=== PATIENT | male | born 1955 | race Caucasian/White ===

== ENCOUNTER → 2016-07-02 | Outpatient (CLI) | payer BC, OTHER ==
[~2016-07-02] MED LIST: AMARYL2 MG PO; ASPIRIN325 PO; CARVEDILOL3.125 MG PO; CRESTOR20 MG PO; EFFIENT10 MG PO; LISINOPRIL5 MG PO; NAPROSYN500 MG PO; NITROGLYCERIN0.4 MG SL; NORCO 5-325 TA1 EACH PO; VITAMIN D1000 UNI1 PO; VITAMINC500 PO; [UNRECOGNIZED DRUG - OTHER]
== END ==
LOC: ULTRA 08:32
DX: Q44.6 Cystic disease of liver (principal)

== ENCOUNTER → 2020-03-10 | Outpatient (CLI) | payer BC, OTHER ==
[~2020-03-10] MED LIST changes: +ASPIR-LOW81 MG PO
== END ==
LOC: LAB 10:03
PROVIDERS: ATTEND Nurse Practitioner
DX: Z20.828 Contact with and (suspected) exposure to other viral communicable diseases (principal)